=== PATIENT | male | born 1960 | race African-American/Black ===

== ENCOUNTER 2024-10-22 21:18 | Inpatient (IN) | payer OTHER ==
[2024-10-22 22:06] VITALS: BMI 21.7
[2024-10-22] MEDS ORDERED: NICOTINE POLACRILEX 2 MG GUM BUC PRN (23:44)
[2024-10-22] MEDS ORDERED: BENZONATATE 200 MG CAPSULE PO PRN (23:44)
[2024-10-22] MEDS ORDERED: LOPERAMIDE HCL 2 MG CAPSULE PO PRN (23:44)
[2024-10-22] MEDS ORDERED: POLYETHYLENE GLYCOL (HEALTHYLAX) 3350 17 GM PACKET PO PRN (23:44)
[2024-10-22] MEDS ORDERED: guaiFENesin 600 MG TABLET.ER (FP) PO PRN (23:44)
[2024-10-22] MEDS ORDERED: NALOXONE (NARCAN) HCL 4 MG/0.1 ML SPRAY NS PRN (23:44)
[2024-10-22] MEDS ORDERED: ONDANSETRON *ODT* 4 MG TABLET SL PRN (23:44)
[2024-10-22] MEDS ORDERED: BENZOCAINE/MENTHOL (CHLORASEPTIC ) LOZENGE MM PRN (23:44)
[2024-10-22] MEDS ORDERED: BISMUTH SUBSALICYLATE 524 MG/30 ML PO PRN (23:44)
[2024-10-22] MEDS ORDERED: MAG HYDROX/AL HYDROX/SIMETH 30 ML UNIT-DOSE CUP PO PRN (23:44)
[2024-10-22] MEDS ORDERED: MAGNESIUM HYDROX 2400MG/30ML ORAL SUSPENSION 30 ML CUP PO PRN (23:44)
[2024-10-22] MEDS ORDERED: methaDONE HCL 10 MG TABLET (FOR DETOX USE ONLY) PO PRN (23:48)
[2024-10-23] MEDS ORDERED: methaDONE HCL 10 MG TABLET (FOR DETOX USE ONLY) ONE (01:23)
[2024-10-23] MEDS: methaDONE HCL 10 MG TABLET (FOR DETOX USE ONLY) PO ONE (01:24)
[2024-10-23] MEDS: IBUPROFEN 400 MG TABLET (FP) PO PRN (06:14)
[2024-10-23] MEDS: PRENATAL VITAMINS W/ FOLIC ACID TABLET (FP) PO SCH (09:49)
[2024-10-23] MEDS: APIXABAN 5 MG TABLET PO SCH (09:49)
[2024-10-23] MEDS: NICOTINE 14 MG/24 HOURS TOPICAL PATCH TD SCH (09:49)
[2024-10-23 10:44] LABS: HEMATOCRIT 31.1 % (35.4-49); HEMOGLOBIN 10.2 GM/dL (11.7-16.9); MCH 30.5 pg (25.7-33.7); MCHC 32.8 g/dl (32.0-35.9); MEAN CELL VOLUME 92.8 fl (80-96); MEAN PLT VOLUME 9.5 fl (7.5-11.1); PLATELET COUNT 61 10^3/uL (134-434); RBC 3.35 M/mm3 (4.00-5.60); RDW 13.9 % (11.9-15.9); WHITE BLOOD COUNT 3.9 K/mm3 (4.0-10.0)
[2024-10-23 10:46] LABS: CHLORIDE 108 mmol/L (98-107); POTASSIUM 4.3 mmol/L (3.5-5.1); SODIUM 141 mmol/L (136-145)
[2024-10-23 10:51] LABS: ALBUMIN 2.5 g/dl (3.4-5.0); ANION GAP 5 mmol/L (4-13); BLOOD UREA NITROGEN 17.2 mg/dL (7-18); CALCIUM 7.9 mg/dL (8.5-10.1); CO2 29 mmol/L (21-32); GLUCOSE,RANDOM 141 mg/dL (74-106)
[2024-10-23 10:54] LABS: CREATININE 1.1 mg/dL (0.55-1.3); SGOT/AST 87 U/L (15-37); SGPT/ALT 56 U/L (13-61)
[2024-10-23 10:55] LABS: BILIRUBIN,TOTAL 0.4 mg/dL (0.2-1)
[2024-10-23 10:56] LABS: TOT PROT 5.7 g/dl (6.4-8.2)
[2024-10-23 10:57] LABS: ALK PHOS 106 U/L (45-117)
[2024-10-23] MEDS: IBUPROFEN 600 MG TABLET (FP) PO PRN (14:47)
[2024-10-23] MEDS: AMOX TR/POT CLAV 875MG/125MG TABLETS (FP) PO SCH (17:42)
[2024-10-23] MEDS: MELATONIN 5 MG TABLETS PO SCH (21:29)
[2024-10-23] MEDS: THIAMINE 100 MG TABLET PO SCH (21:30)
[2024-10-24] MEDS: cloNIDine HCL 0.1 MG TABLET PO PRN (03:01)
[2024-10-24] MEDS: ACETAMINOPHEN 325 MG TABLET (FP) PO PRN (03:02)
[2024-10-24] MEDS: methaDONE HCL 10 MG TABLET PO ONE (09:35)
[2024-10-24] MEDS: cloNIDine HCL 0.1 MG TABLET PO SCH (09:36)
[2024-10-24] MEDS ORDERED: methaDONE HCL 10 MG TABLET (FOR DETOX USE ONLY) PO ONE (10:00)
[2024-10-24] MEDS ORDERED: methaDONE HCL 10 MG TABLET PO PRN (10:39)
[2024-10-24] MEDS: METHOCARBAMOL 500 MG TABLET PO SCH (11:10)
[2024-10-25] MEDS ORDERED: methaDONE 40 MG, methaDONE 10 MG PO ONE (10:00)
[2024-10-25] MEDS: MINERAL OIL/PET HY-PHL TOPICAL OINTMENT 454 GM JAR TP SCH (14:44)
[2024-10-26] MEDS: cloNIDine HCL 0.1 MG TABLET PO PRN (06:13)
[2024-10-26] MEDS ORDERED: methaDONE HCL 10 MG TABLET (FOR DETOX USE ONLY) PO ONE (10:00)
[2024-10-26] MEDS: methaDONE 40 MG, methaDONE 20 MG PO ONE (10:01)
[2024-10-27] MEDS ORDERED: NALOXONE (NYS OPIOID OVERDOSE PROGRAM) 4 MG/0.1 ML SPRAY NS PRN (08:00)
[2024-10-27] MEDS: methaDONE 40 MG, methaDONE 30 MG PO ONE (09:37)
[2024-10-27] MEDS: BENZOCAINE 20 % GEL TUBE MM PRN (21:34)
[2024-10-28] MEDS ORDERED: methaDONE HCL 40 MG DISPERSABLE TABLET PO ONE (10:00)
[2024-10-28] MEDS ORDERED: methaDONE HCL 10 MG TABLET PO ONE ×2 (10:00)
[2024-10-28 10:16] VITALS: TEMP 98
[2024-10-28] MEDS: methaDONE 40 MG, methaDONE 30 MG PO ONE (10:27)
[2024-10-28 13:45] VITALS: BP 134/74; PULSE 66; RESP 18
[2024-10-29] MEDS ORDERED: methaDONE 40 MG, methaDONE 30 MG PO ONE (10:00)
[2024-10-29] MEDS ORDERED: methaDONE HCL 10 MG TABLET PO ONE (10:00)
[2024-10-29] MEDS ORDERED: methaDONE 80 MG, methaDONE 10 MG PO ONE (10:00)
== END 2024-10-28 14:01 | disposition home or self-care (01) | DRG 773 ==
LOC: YASAS 21:18 → Y3N 10-23 01:31
PROVIDERS: ADMIT Allergy & Immunology; ATTEND Allergy & Immunology
PROC: HZ2ZZZZ Detoxification Services for Substance Abuse Treatment (ICD-10-PCS; principal; 2024-10-23)
DX: F11.23 Opioid dependence with withdrawal (principal); F14.20 Cocaine dependence, uncomplicated; F17.210 Nicotine dependence, cigarettes, uncomplicated; H91.91 Unspecified hearing loss, right ear; K02.9 Dental caries, unspecified; Z87.19 Personal history of other diseases of the digestive system; Z86.718 Personal history of other venous thrombosis and embolism; Z79.01 Long term (current) use of anticoagulants; Z56.0 Unemployment, unspecified; Z59.00 Homelessness unspecified; Z88.8 Allergy status to other drugs, medicaments and biological substances
CPT/HCPCS: 36415; 80053; 80307; 85027; 86780; 93005; 93010